=== PATIENT | female | born 1990 | race Caucasian/White ===

== ENCOUNTER 2021-02-12 11:52 | Inpatient (IN) ==
[2021-02-12] MEDS ORDERED: Famotidine 20 MG/2 ML VIAL IVP PRN (12:09)
[2021-02-12] MEDS ORDERED: Naloxone 0.4 MG/ML INJ IVP PRN (12:09)
[2021-02-12] MEDS ORDERED: Metoclopramide 10 MG/2 ML VIAL IVP PRN (12:09)
[2021-02-12] MEDS ORDERED: CeFAZolin Syr 3,000MG/30 ML 3,000 MG/30 ML SYRINGE IVPB ONE ×2 (12:12→12:51)
[2021-02-12] MEDS ORDERED: Ringers Solution, Lactated 1,000 ML IVC SCH (12:15)
[2021-02-12] MEDS ORDERED: EPHEDrine 50 MG/ML VIAL ONE (13:03)
[2021-02-12] MEDS ORDERED: *HR* FentaNYL (PF) 100 MCG/2 ML VIAL ONE (13:03)
[2021-02-12] MEDS ORDERED: *HR* Morphine Sulfate/PF 10 MG/10 ML AMPUL ONE (13:03)
[2021-02-12] MEDS ORDERED: Ondansetron 4 MG/2 ML VIAL ONE (13:03)
[2021-02-12] MEDS ORDERED: Ketorolac 30 MG/ML VIAL ONE (13:06)
[2021-02-12] MEDS ORDERED: Acetaminophen IV 1,000 MG/100 ML BAG IVPB ONE (13:10)
[2021-02-12 13:25] LABS: Basophils % 0.4 %; Eosinophils # 0.1 K/mcL (0.0-0.6); Eosinophils % 1.2 %; Hematocrit 36.6 % (35.3-44.9); Hemoglobin 11.9 g/dL (11.5-15.4); Immature Granulocytes % 0.7 % (0-4); Lymphocytes # 1.1 K/mcL (0.6-4.6); Lymphocytes % 11.8 %; Mean Corpuscular HGB Conc 32.5 g/dL (31.6-35.5); Mean Corpuscular Volume 86.1 fL (83.0-100.0); Mean Platelet Volume 10.7 fL (9.4-12.4); Monocytes # 0.6 K/mcL (0.0-1.3); Neutrophils # 7.1 K/mcL (1.6-8.9); Platelet Count 237 K/mcL (140-400); Red Blood Count 4.25 M/mcL (3.82-4.97); Red Cell Distribution Width 13.5 % (11.5-14.5); Segmented Neutrophils % 78.9 %
[2021-02-12 13:46] LABS: Amphetamine Screen,Urine Negative ng/mL (Cutoff=1000); Barbiturate Screen,Urine Negative ng/mL (Cutoff=200); Benzodiazepines Screen,Urine Negative ng/mL (Cutoff=200); Cannabinoid Screen,Urine Negative ng/mL (Cutoff = 50); Cocaine Screen,Urine Negative ng/mL (Cutoff= 300); Creatinine,Urine 90 mg/dL; Opiate Screen,Urine Negative ng/mL (Cutoff=300); Phencyclidine Screen,Urine Negative ng/mL (Cutoff=25); Protein/Creatinine Ratio,Urine 0.26 mg/mg (0.00-0.20)
[2021-02-12 13:57] LABS: Influenza A PCR Negative (Negative); Influenza B PCR Negative (Negative); Resp. Syncytial Virus PCR Negative (Negative); SARS-CoV-2 by PCR (In House) Negative (Negative)
[2021-02-12 14:05] LABS: Aspartate Amino Transferase 19 Units/L (13-39); eGFR For African Americans > 60 (> 60); eGFR For Non-African Americans > 60 (> 60)
[2021-02-12] MEDS ORDERED: *HR* HYDROmorphone PF 0.5 MG/0.5 ML SYRINGE IVP PRN (14:54)
[2021-02-12] MEDS ORDERED: Promethazine 6.25 MG in Water for inj. (sterile) 20 ML IVPB PRN (14:54)
[2021-02-12] MEDS ORDERED: Ondansetron 4 MG/2 ML VIAL IVP PRN (14:54)
[2021-02-12] MEDS ORDERED: EPINEPHrine 1 MG/ML VIAL ONE (19:57)
[2021-02-12] MEDS ORDERED: Oxytocin 20 units/ LR 1000 mL 20 UNIT/1,000 ML BAG IVC ONE (21:50)
[2021-02-12] MEDS ORDERED: Benzonatate 100 MG CAPSULE PO PRN (23:39)
[2021-02-13] MEDS ORDERED: Metoclopramide 10 MG/2 ML VIAL IVP PRN (00:13)
[2021-02-13] MEDS ORDERED: Oxytocin 20 units/ LR 1000 mL 20 UNIT/1,000 ML BAG IVC SCH (00:13)
[2021-02-13] MEDS ORDERED: Naloxone 0.4 MG/ML INJ IVP PRN (00:13)
[2021-02-13] MEDS ORDERED: Ondansetron 4 MG/2 ML VIAL IVP PRN (00:13)
[2021-02-13] MEDS ORDERED: miSOPROStoL 100 MCG TABLET RC STA (01:25)
[2021-02-13] MEDS ORDERED: Benzonatate 100 MG CAPSULE PO PRN (01:35)
[2021-02-13] MEDS: Acetaminophen 325 MG TABLET PO SCH ×3 (03:03→18:10)
[2021-02-13] MEDS: Ibuprofen 600 MG TABLET PO SCH ×3 (03:03→18:11)
[2021-02-13] MEDS: *HR* OxyCODONE Immed Rel 5 MG TABLET PO PRN ×2 (04:30→13:48)
[2021-02-13 05:43] LABS: Basophils % 0.2 %; Eosinophils % 0.1 %; Hematocrit 30.1 % (35.3-44.9); Immature Granulocytes % 0.5 % (0-4); Lymphocytes % 6.6 %; Mean Corpuscular HGB Conc 33.6 g/dL (31.6-35.5); Mean Corpuscular Hemoglobin 28.5 pg (28.0-33.3); Mean Platelet Volume 10.6 fL (9.4-12.4); Monocytes % 6.6 %; Neutrophils # 12.3 K/mcL (1.6-8.9); Platelet Count 249 K/mcL (140-400); Red Blood Count 3.54 M/mcL (3.82-4.97); Red Cell Distribution Width 13.1 % (11.5-14.5)
[2021-02-13 05:45] LABS: Hemoglobin 10.1 g/dL (11.5-15.4); Lymphocytes # 0.9 K/mcL (0.6-4.6); Monocytes # 0.9 K/mcL (0.0-1.3); White Blood Count 14.3 K/mcL (4.3-11.1)
[2021-02-13] MEDS: *HR* Enoxaparin 100 MG/ML SYRINGE SQ SCH ×2 (08:44→18:11)
[2021-02-13] MEDS: Prenatal Vit/FA 1 EACH TABLET PO SCH (08:45)
[2021-02-13] MEDS: Simethicone 80 MG TAB.CHEW PO PRN ×2 (08:46→18:12)
[2021-02-13] MEDS ORDERED: miSOPROStoL 100 MCG TABLET RC ONE (14:39)
[2021-02-14] MEDS: Simethicone 80 MG TAB.CHEW PO PRN ×2 (01:01→06:46)
[2021-02-14] MEDS: *HR* OxyCODONE Immed Rel 5 MG TABLET PO PRN ×2 (01:01→10:34)
[2021-02-14] MEDS: Acetaminophen 325 MG TABLET PO SCH ×2 (01:02→06:46)
[2021-02-14] MEDS: Ibuprofen 600 MG TABLET PO SCH ×2 (01:02→06:46)
[2021-02-14] MEDS: *HR* Enoxaparin 100 MG/ML SYRINGE SQ SCH (08:29)
[2021-02-14] MEDS: Prenatal Vit/FA 1 EACH TABLET PO SCH (08:30)
[2021-02-14 09:02] VITALS: BP 118/87; PULSE 78; TEMP 97.6; O2SAT 96
== END 2021-02-14 14:40 | disposition home or self-care (01) | DRG 785 ==
LOC: 1NENULAB 11:52 → 1NENUOBS 02-13 00:23
PROVIDERS: ADMIT Obstetrics & Gynecology; ATTEND Obstetrics & Gynecology